=== PATIENT | male | born 1975 | race Caucasian/White ===

== ENCOUNTER 2020-06-26 09:31 | Emergency (ER) | payer OTHER, SELFPAY ==
--- NOTE | ~2020-06-26 | XR_ITS ---
EXAMINATION: XR ribs LT 2V INDICATION: Chest pain after fall TECHNIQUE: 3 views of the left ribs were obtained. COMPARISON: None. FINDINGS: The lungs are free of acute opacities. There is no pleural effusion or pneumothorax. The ca rdiomediastinal silhouette is normal. The visualized bones and soft tissues are unremarkable. IMPRESSION: 1. No acute cardiopulmonary abnormality or evidence of displaced rib fracture. Reviewed, dictated and finalized at location A. [employer]
[2020-06-26 09:48] VITALS: BP 134/97; PULSE 78; RESP 14; TEMP 36.2; O2SAT 100
--- NOTE | 2020-06-26 09:58 | ED.FALL ---
HPI - Fall General Chief Complaint: Fall Stated Complaint: HURT RIBS Time Seen by Provider: 06/26/20 09:58 Source: patient and RN notes reviewed Mode of arrival: ambulatory Limitations: no limitations History of Present Illness HPI Narrative: patient fell last evening going up the stairs. He fell forward onto the stairs. He has had pain in his left ribs since that time. complaint: fall Onset (ago): day(s) (1) Fall from: standing Fall witnessed: no Place fall occurred: home Loss of consciousness: none Prolonged down time: no Symptoms prior to fall: none Context: tripped/slipped Location of injury: chest Severity: moderate Quality: dull and aching Associated symptoms (after fall): denies Related Data Home Medications Medication Instructions Recorded Confirmed No Home Medications 06/26/20 06/26/20 Allergies Allergy/AdvReac Type Severity Reaction Status Date / Time No Known Allergies Allergy Verified 06/26/20 09:47 Review of Systems Review of Systems: All systems reviewed & are unremarkable except as noted in HPI and below PMFSH Past Medical History Medical History (Updated 06/26/20 @ 11:09 by Quentin Atwood MD) No active medical problems Surgical History Surgical History (Updated 06/26/20 @ 10:05 by Quentin Atwood MD) H/O inguinal hernia repair History of appendectomy Social History Social History (Updated 06/26/20 @ 10:06 by Quentin Atwood MD) Smoking packs per day: 1 Smoking cigarettes per day: 20.0 Smoking status: Current every day smoker Tobacco type: cigarettes Alcohol intake: never Substance use: current Substance use type: marijuana Other substance usage details: occasional Exam Const: General: healthy appearing and no acute distress Nutritional Appearance: obese centrally obese Orientation/consciousness: patient oriented x3 HENMT: Head: normal to inspection Ears: external ears normal Eyes: Conjunctivae: conjunctivae normal Pupils: Equal, round and reactive pupils present EOM: EOMs intact bilaterally Neck: Neck: normal visual inspection Chest: Chest palpation & inspection: tenderness rib left mid-clavicular line involving the 10th rib and involving the 11th rib Resp: Effort & Inspection: normal respiratory effort Auscultation: clear to auscultation bilaterally Cardio: Rate: regular rate Rhythm: regular rhythm GI: GI Palp: Yes Soft to palpation, No Tenderness to palpation present (GI) and No Guarding due to palpation present (GI) Auscultation: normal bowel sounds Back/Spine/Pelvis: Cervical Spine: cervical ROM normal Thoracic/Lumbar Spine: thoraco-lumbar ROM normal Skin: General skin exam: normal color Rashes: no rashes Neuro: General: patient oriented x3, moves all extremities, no meningeal signs and no focal motor deficits Speech: normal speech Gait exam (Neuro): Normal gait present Extrem: General: normal to inspection and no clubbing, cyanosis or edema Psych: Appearance: grossly normal and well kempt Mental Status: mental status grossly normal Affect: normal affect Attitude: cooperative Thought content: Yes Normal thought content present Course Vital Signs Vital signs: Vital Signs Temperature 36.2 C L 06/26/20 09:48 Pulse Rate 78 06/26/20 09:48 Respiratory Rate 14 06/26/20 09:48 Blood Pressure 134/97 H 06/26/20 09:48 Pulse Oximetry 100 06/26/20 09:48 Temperature 36.2 C L 06/26/20 09:48 Pulse Rate 78 06/26/20 09:48 Respiratory Rate 16 06/26/20 11:25 Blood Pressure 134/97 H 06/26/20 09:48 Pulse Oximetry 100 06/26/20 11:25 Discharge Plan Discharge Clinical Impression: Rib contusion Qualifiers: Encounter type: initial encounter Laterality: left Qualified Code(s): S20.212A - Contusion of left front wall of thorax, initial encounter Patient Disposition: Home, Self-Care Condition: Stable Instructions: Contusion in Adults (ED) Additional Instructions: Use Tylenol and/or Motrin
[2020-06-26] MEDS: KETOROLAC (*BKC) 60 MG/2 ML VIAL IM (11:10)
[2020-06-26 11:25] VITALS: RESP 16; O2SAT 100
== END 2020-06-26 11:25 | disposition home or self-care (01) ==
PROVIDERS: Emergency Provider Emergency Medicine; PCP Physician Assistant
DX: S20.212A Contusion of left front wall of thorax, initial encounter (principal); W19.XXXA Unspecified fall, initial encounter
CPT/HCPCS: 71100; 96372; 99282; 99283; J1885